=== PATIENT | female | born 1995 ===

== ENCOUNTER 2019-07-26 19:43 | Inpatient (IN) | payer OTHER ==
[~2019-07-26] VITALS: Ht 162.6 cm; Wt 78.0 kg
[2019-07-26] MEDS ORDERED: PRENATABS RX T1 EACH PO (20:14)
[2019-07-26] MEDS ORDERED: FE C TABLET1 EACH PO (20:15)
== END 2019-07-29 12:29 | disposition home or self-care (01) | DRG 807 ==
LOC: OB/GYN 19:43 → LDR 19:43 → OB/GYN 07-27 19:06
PROVIDERS: ADMIT Obstetrics & Gynecology
PROC: 10E0XZZ Delivery of Products of Conception, External Approach (ICD-10-PCS; principal; 2019-07-26)
PROC: 10907ZC Drainage of Amniotic Fluid, Therapeutic from Products of Conception, Via Natural or Artificial Opening (ICD-10-PCS; 2019-07-26)
PROC: 3E0P7VZ Introduction of Hormone into Female Reproductive, Via Natural or Artificial Opening (ICD-10-PCS; 2019-07-26)
PROC: 3E033VJ Introduction of Other Hormone into Peripheral Vein, Percutaneous Approach (ICD-10-PCS; 2019-07-26)
PROC: 4A1HXCZ Monitoring of Products of Conception, Cardiac Rate, External Approach (ICD-10-PCS; 2019-07-26)
DX: O80 Encounter for full-term uncomplicated delivery (principal); Z37.0 Single live birth; Z3A.38 38 weeks gestation of pregnancy; Z22.330 Carrier of Group B streptococcus